=== PATIENT | female | born 2000 | race Caucasian/White ===

== ENCOUNTER 2021-11-03 13:51 | Emergency (ER) | payer SELFPAY ==
--- NOTE | 2021-11-03 14:23 | NUR ---
PATIENT LEFT WITHOUT BEING SEEN BY DR. DONIS. NO FURTHER CARE PROVIDED FOR PATIENT.
--- NOTE | 2021-11-03 14:23 | NUR ---
NO ANSWER WHEN CALLED TO TRIAGE
== END 2021-11-03 14:23 | disposition left against medical advice (07) ==
LOC: MED 13:51
DX: R11.10 Vomiting, unspecified (principal); R21 Rash and other nonspecific skin eruption; Z53.21 Procedure and treatment not carried out due to patient leaving prior to being seen by health care provider